=== PATIENT | male | born 2000 | race Caucasian/White ===

== ENCOUNTER 2021-01-30 22:28 | Emergency (ER) | payer OTHER ==
[~2021-01-30] VITALS: Ht 182.9 cm; Wt 95.3 kg
[2021-01-30 23:10] LABS: INFLUENZA A ANTIGEN Negative (Negative); INFLUENZA B ANTIGEN Negative (Negative)
[2021-01-30] MEDS ORDERED: MEDROLDOSEPACK PO (23:40)
[2021-01-30] MEDS ORDERED: VENTOLIN HFA 1818 GM INH (23:40)
[2021-01-31] VITALS: BP 142/70
== END 2021-01-31 | disposition home or self-care (01) ==
LOC: M.ERS 22:28
PROVIDERS: Personal Emergency Response Attendant
DX: J06.9 Acute upper respiratory infection, unspecified (principal); Z20.822 Contact with and (suspected) exposure to COVID-19; R05.9 Cough, unspecified; R09.81 Nasal congestion; J45.909 Unspecified asthma, uncomplicated

== ENCOUNTER 2021-02-06 01:09 | Emergency (ER) | payer OTHER ==
[~2021-02-06] VITALS: Ht 182.9 cm; Wt 95.3 kg
[~2021-02-06 01:09] MED LIST: MEDROLDOSEPACK PO; VENTOLIN HFA 1818 GM INH
[2021-02-06] MEDS ORDERED: PREDNISONE50 MG PO (03:02)
[2021-02-06 03:10] VITALS: BP 130/75
== END 2021-02-06 03:10 | disposition home or self-care (01) ==
LOC: M.ERS 01:09
DX: J45.901 Unspecified asthma with (acute) exacerbation (principal); Z79.899 Other long term (current) drug therapy